=== PATIENT | female | born 1970 | race Caucasian/White ===

== ENCOUNTER → 2016-10-06 | Outpatient (CLI) | payer BC | LOC: BHSO 10:44 | DX: F43.10 Post-traumatic stress disorder, unspecified (principal) | CPT/HCPCS: 90791-AI ==

== ENCOUNTER → 2016-11-15 | Outpatient (CLI) | payer BC | LOC: BHSO 09:37 | DX: F43.10 Post-traumatic stress disorder, unspecified (principal) ==

== ENCOUNTER → 2016-12-21 | Outpatient (CLI) | payer BC | LOC: BHSO 09:15 | DX: F43.10 Post-traumatic stress disorder, unspecified (principal) ==

== ENCOUNTER → 2017-03-02 | Outpatient (CLI) | payer BC | LOC: BHSO 09:36 | DX: F43.10 Post-traumatic stress disorder, unspecified (principal) ==

== ENCOUNTER → 2017-03-22 | Outpatient (CLI) | payer BC | LOC: COL.RAD 03-21 07:30 | DX: M51.27 Other intervertebral disc displacement, lumbosacral region (principal); G54.8 Other nerve root and plexus disorders ==

== ENCOUNTER → 2017-05-31 | Outpatient (CLI) | payer BC | LOC: BHSO 08:58 | DX: F43.10 Post-traumatic stress disorder, unspecified (principal) | CPT/HCPCS: G0463 ==

== ENCOUNTER → 2017-06-19 | Outpatient (CLI) | payer BC | LOC: MC.RAD 10:40 | DX: Z12.31 Encounter for screening mammogram for malignant neoplasm of breast (principal) ==

== ENCOUNTER → 2017-07-05 | Outpatient (CLI) | payer BC | LOC: MHCPAIN 09:26 | DX: G89.29 Other chronic pain (principal); M47.817 Spondylosis without myelopathy or radiculopathy, lumbosacral region; M54.16 Radiculopathy, lumbar region | CPT/HCPCS: G0463 ==

== ENCOUNTER → 2017-09-28 | Outpatient (CLI) | payer BC | LOC: BHSO 08:00 | DX: F43.10 Post-traumatic stress disorder, unspecified (principal) | CPT/HCPCS: G0463 ==

== ENCOUNTER → 2017-10-25 | Outpatient (CLI) | payer BC | LOC: MHCPAIN 09:27 | DX: G89.29 Other chronic pain (principal); M47.817 Spondylosis without myelopathy or radiculopathy, lumbosacral region; M54.16 Radiculopathy, lumbar region; M53.3 Sacrococcygeal disorders, not elsewhere classified | CPT/HCPCS: G0463 ==

== ENCOUNTER → 2017-11-10 | Outpatient (CLI) | payer BC | LOC: COL.CARD 11-06 08:30 | DX: R00.0 Tachycardia, unspecified (principal) ==

== ENCOUNTER → 2018-01-29 | Outpatient (CLI) | payer BC | LOC: BHSO 08:15 | DX: F43.10 Post-traumatic stress disorder, unspecified (principal) | CPT/HCPCS: G0463 ==

== ENCOUNTER → 2018-04-26 | Outpatient (CLI) | payer BC | LOC: BHSO 09:46 | DX: F43.10 Post-traumatic stress disorder, unspecified (principal) | CPT/HCPCS: G0463 ==

== ENCOUNTER → 2018-06-28 | Outpatient (CLI) | payer BC | LOC: BHSO 09:54 | DX: F43.10 Post-traumatic stress disorder, unspecified (principal) | CPT/HCPCS: G0463 ==

== ENCOUNTER → 2019-01-10 | Outpatient (CLI) | payer BC | LOC: MC.RAD 08:00 | DX: Z12.31 Encounter for screening mammogram for malignant neoplasm of breast (principal) ==

== ENCOUNTER 2019-08-28 09:51 | Outpatient (RCR) | payer BC | END 2019-11-26 | disposition home or self-care (01) | LOC: MKS.ESL.PT | DX: M54.5 Low back pain (principal); M89.29 Other disorders of bone development and growth, multiple sites ==

== ENCOUNTER → 2020-02-07 | Outpatient (CLI) | payer BC | LOC: MC.RAD 07:30 | DX: Z12.31 Encounter for screening mammogram for malignant neoplasm of breast (principal); Z98.82 Breast implant status ==

== ENCOUNTER 2020-05-16 10:04 | Emergency (ER) | payer BC ==
[~2020-05-16] VITALS: Ht 167.6 cm; Wt 122.7 kg
[2020-05-16 10:12] VITALS: TEMP 97
[2020-05-16 11:56] LABS: ALBUMIN 3.8 gm/dL (3.5-5.0); BILIRUBIN,TOTAL 0.5 mg/dL (0.0-1.0); CALCIUM 8.7 mg/dL (8.4-10.2); CREATININE, serum 1.06 (0.52-1.25); TOTAL PROTEIN 7.3 gm/dL (6.4-8.2)
[2020-05-16 11:58] LABS: BASO % 0.3 % (0.0-2.0); EOS # 0.1 (0.0-0.7); GRAN # 8.5 (1.4-6.5); GRAN % 73.5 % (42.2-75.2); HEMATOCRIT 43.7 % (37.0-47.0); HEMOGLOBIN 12.2 g/dl (12.5-16.0); LYMPH # 2.2 (1.2-3.4); LYMPH % 18.7 % (20.0-51.0); MEAN CELL VOLUME 91 fl (80.0-100.0); MEAN CORPUSCULAR HEMOGLOBIN 25 pg (27.0-31.0); MEAN CORPUSCULAR HGB CONC 28 g/dl (33.0-37.0); MONO # 0.7 (0.1-0.6); MONO % 5.8 % (1.7-9.3); PLATELET COUNT 328 K/mm3 (130-400); POTASSIUM 5.8 mmol/L (3.4-5.0); RED BLOOD COUNT 4.83 M/mm3 (4.10-5.30); REDCELL DISTRIBUTION WIDTH-CV 16.4 % (11.5-14.5)
[2020-05-16] MEDS ORDERED: DECADRON 4MG TAB4 MG PO (12:28)
[2020-05-16] MEDS ORDERED: ALBUTEROL0.83 MG/ML IH (12:36)
[2020-05-16] MEDS ORDERED: PROVENTIL0.09 MG/A1 IH (12:37)
[2020-05-16] MEDS ORDERED: GLUCOPHAGE1000 MG PO (12:37)
[2020-05-16] MEDS ORDERED: LEVAQUIN 5500 MG/TA1 PO (12:38)
[2020-05-16] MEDS ORDERED: PRINIVIL10 MG PO (12:39)
[2020-05-16] MEDS ORDERED: VALIUM 5MG T5 MG/TAB PO (12:39)
[2020-05-16] MEDS ORDERED: ALDACTONE 25MG25 M1 PO (12:40)
[2020-05-16] MEDS ORDERED: RISPERDAL2 MG PO (12:41)
[2020-05-16] MEDS ORDERED: TOPROL XL200 MG PO (12:41)
[2020-05-16] MEDS ORDERED: SYNTHROID0.1 MG/TAB PO (12:42)
[2020-05-16] MEDS ORDERED: NORCO 325 MG-51 TAB PO (12:43)
[2020-05-16 13:41] LABS: COLLECTION METHOD CLEAN CATCH
[2020-05-16 14:09] LABS: MUCOUS Present /lpf; PH 6 (5-8); URINE APPEARANCE Hazy; URINE BACTERIA Many /hpf; URINE BILIRUBIN Negative (NEGATIVE); URINE BLOOD Negative (NEGATIVE); URINE COLOR Yellow; URINE GLUCOSE Negative (NEGATIVE); URINE KETONE Negative (NEGATIVE); URINE LEUKOCYTE ESTERASE Negative (NEGATIVE); URINE NITRATE Negative (NEGATIVE); URINE PROTEIN(semi-quant) Negative (NEGATIVE); URINE RBC 0-2 /hpf; URINE UROBILINOGEN Negative (NEGATIVE)
[2020-05-16 14:24] VITALS: BP 106/69; PULSE 86
== END 2020-05-16 13:31 | disposition home or self-care (01) ==
LOC: COL.ER 10:04
PROVIDERS: Family Medicine
DX: U07.1 COVID-19 (principal); E11.9 Type 2 diabetes mellitus without complications; F31.9 Bipolar disorder, unspecified; Z88.0 Allergy status to penicillin; Z88.1 Allergy status to other antibiotic agents; Z79.84 Long term (current) use of oral hypoglycemic drugs
CPT/HCPCS: J1100; J7120

== ENCOUNTER → 2020-05-19 | Outpatient (CLI) | payer BC ==
[~2020-05-19] MED LIST: ALBUTEROL0.83 MG/ML IH; ALDACTONE 25MG25 M1 PO; DECADRON 4MG TAB4 MG PO; GLUCOPHAGE1000 MG PO; LEVAQUIN 5500 MG/TA1 PO; NORCO 325 MG-51 TAB PO; PRINIVIL10 MG PO; PROVENTIL0.09 MG/A1 IH; RISPERDAL2 MG PO; SYNTHROID0.1 MG/TAB PO; TOPROL XL200 MG PO; VALIUM 5MG T5 MG/TAB PO
[2020-05-19 11:11] LABS: ALBUMIN 3.4 gm/dL (3.5-5.0); BILIRUBIN,TOTAL 0.3 mg/dL (0.0-1.0); CALCIUM 8.6 mg/dL (8.4-10.2); CREATININE, serum 1.1 (0.52-1.25); POTASSIUM 5.4 mmol/L (3.4-5.0); TOTAL PROTEIN 6.4 gm/dL (6.4-8.2)
== END ==
LOC: COL.LAB 10:40
PROVIDERS: Family Medicine
DX: E87.8 Other disorders of electrolyte and fluid balance, not elsewhere classified (principal)

== ENCOUNTER → 2020-06-10 | Outpatient (CLI) | payer BC | LOC: COL.RAD | DX: J98.6 Disorders of diaphragm (principal) ==

== ENCOUNTER → 2020-06-25 | Outpatient (CLI) | payer BC | LOC: COL.VAS 13:52 | DX: R06.02 Shortness of breath (principal) ==

== ENCOUNTER 2020-09-06 19:06 | Emergency (ER) | payer BC ==
[~2020-09-06] VITALS: Ht 170.2 cm; Wt 122.7 kg
[2020-09-06 19:12] VITALS: BP 122/87; TEMP 98.9
[2020-09-06 19:35] LABS: BASO % 0.5 % (0.0-2.0); EOS # 0.5 (0.0-0.7); EOS % 7.4 % (0-4.0); GRAN # 3.5 (1.4-6.5); HEMOGLOBIN 11.4 g/dl (12.5-16.0); LYMPH # 1.8 (1.2-3.4); LYMPH % 27.3 % (20.0-51.0); MEAN CELL VOLUME 96 fl (80.0-100.0); MEAN CORPUSCULAR HEMOGLOBIN 27 pg (27.0-31.0); MEAN CORPUSCULAR HGB CONC 29 g/dl (33.0-37.0); MONO # 0.7 (0.1-0.6); MONO % 10.9 % (1.7-9.3); PLATELET COUNT 273 K/mm3 (130-400); RED BLOOD COUNT 4.16 M/mm3 (4.10-5.30); REDCELL DISTRIBUTION WIDTH-CV 14.3 % (11.5-14.5)
[2020-09-06 19:52] LABS: ALBUMIN 3.8 gm/dL (3.5-5.0); BILIRUBIN,TOTAL 0.1 mg/dL (0.0-1.0); CALCIUM 9.1 mg/dL (8.4-10.2); CREATININE, serum 0.93 (0.52-1.25); POTASSIUM 4.4 mmol/L (3.4-5.0); TOTAL PROTEIN 7.7 gm/dL (6.4-8.2)
[2020-09-06 20:28] LABS: COLLECTION METHOD CLEAN CATCH
[2020-09-06 20:33] LABS: INR 1.1 (0.8-3.0); PROTHROMBIN TIME 11.7 SECONDS (9.7-12.8)
[2020-09-06 20:36] LABS: MUCOUS Present /lpf; PH 7 (5-8); URINE APPEARANCE Hazy; URINE BACTERIA Rare /hpf; URINE BILIRUBIN Negative (NEGATIVE); URINE BLOOD Negative (NEGATIVE); URINE COLOR Yellow; URINE GLUCOSE Negative (NEGATIVE); URINE KETONE Negative (NEGATIVE); URINE LEUKOCYTE ESTERASE Negative (NEGATIVE); URINE NITRATE Negative (NEGATIVE); URINE PROTEIN(semi-quant) Negative (NEGATIVE); URINE RBC 0-2 /hpf; URINE UROBILINOGEN Negative (NEGATIVE)
[2020-09-06 21:11] LABS: TROPONIN-I < 0.012 ng/mL (0.000-0.035)
[2020-09-06 23:38] VITALS: PULSE 83
== END 2020-09-06 23:38 | disposition home or self-care (01) ==
LOC: COL.ER 19:06
PROVIDERS: Emergency Medicine
DX: J96.21 Acute and chronic respiratory failure with hypoxia (principal); I10 Essential (primary) hypertension; E03.9 Hypothyroidism, unspecified; E11.9 Type 2 diabetes mellitus without complications; E66.2 Morbid (severe) obesity with alveolar hypoventilation; Z79.890 Hormone replacement therapy; Z79.899 Other long term (current) drug therapy; Z79.84 Long term (current) use of oral hypoglycemic drugs; Z86.16 Personal history of COVID-19
CPT/HCPCS: J2930; J7030

== ENCOUNTER → 2021-07-21 | Outpatient (CLI) | payer BC | LOC: MC.RAD 05-26 10:45 | DX: Z12.31 Encounter for screening mammogram for malignant neoplasm of breast (principal) ==

== ENCOUNTER 2021-12-31 10:42 | Emergency (ER) | payer BC ==
[~2021-12-31] VITALS: Ht 170.2 cm; Wt 136.4 kg
[2021-12-31 10:44] VITALS: TEMP 98.5
[2021-12-31 12:26] LABS: BASO % 0.2 % (0.0-2.0); EOS # 0.1 K/mm3 (0.0-0.7); EOS % 1.4 % (0.0-4.0); GRAN # 6.4 K/mm3 (1.4-6.5); GRAN % 76.5 % (42.2-75.2); LYMPH # 1.3 K/mm3 (1.2-3.4); LYMPH % 15.5 % (20.0-51.0); MEAN CELL VOLUME 93 fl (80.0-100.0); MEAN CORPUSCULAR HEMOGLOBIN 25 pg (27-31); MEAN CORPUSCULAR HGB CONC 27 g/dl (33.0-37.0); MEAN PLATELET VOLUME 9.8 fl (7.4-10.4); MONO # 0.5 K/mm3 (0.1-0.6); MONO % 5.7 % (1.7-9.3); PLATELET COUNT 222 K/mm3 (130-400); RED BLOOD COUNT 3.94 M/mm3 (4.10-5.30); REDCELL DISTRIBUTION WIDTH-CV 15.1 % (11.5-14.5)
[2021-12-31 12:27] LABS: HEMATOCRIT 36.7 % (37.0-47.0)
[2021-12-31 12:44] LABS: ALANINE AMINOTRANSFERASE 13 U/L (0-55); ALKALINE PHOSPHATASE 58 U/L (40-150); ANION GAP 9 mmol/L (7-16); AST,SGOT 40 U/L (5-34); BILIRUBIN,TOTAL 0.5 mg/dL (0.2-1.2); BLOOD UREA NITROGEN 12 mg/dL (10-20); CALCIUM 9.3 mg/dL (8.4-10.2); CARBON DIOXIDE 40 mmol/L (22-29); CHLORIDE 96 mmol/L (98-107); CREATINE KINASE 907 U/L (29-168); CREATININE, serum 0.76 mg/dL (0.57-1.11); GLUCOSE 80 mg/dL (70-99); POTASSIUM 3.7 mmol/L (3.5-4.5); SODIUM 145 mmol/L (136-145); TOTAL PROTEIN 6.5 gm/dL (6.2-8.1)
[2021-12-31 12:50] LABS: TROPONIN-I < 0.010 ng/mL (0.00-0.033)
[2021-12-31 15:17] LABS: COLLECTION METHOD CATHETER
[2021-12-31 15:32] LABS: PH 7.5 (5.0-8.5); URINE APPEARANCE Hazy (CLEAR/HAZY); URINE BLOOD TRACE-INTACT (NEGATIVE); URINE COLOR Yellow (YELLOW); URINE GLUCOSE Negative (NEGATIVE); URINE KETONE Negative (NEGATIVE); URINE NITRATE Negative (NEGATIVE); URINE PROTEIN(semi-quant) Negative (NEGATIVE); URINE UROBILINOGEN 0.2 E.U/dL (0.2-1.0)
[2021-12-31 15:53] LABS: SQUAMOUS EPITHELIAL 20-50 /hpf (0-10)
[2021-12-31 19:45] VITALS: BP 134/62; PULSE 111
== END 2021-12-31 19:45 | disposition short-term general hospital (02) ==
LOC: COL.ER 10:42
PROVIDERS: Emergency Medicine
DX: R55 Syncope and collapse (principal); M54.50 Low back pain, unspecified; R53.1 Weakness; R53.81 Other malaise; Z87.39 Personal history of other diseases of the musculoskeletal system and connective tissue; Z99.81 Dependence on supplemental oxygen; W18.30XA Fall on same level, unspecified, initial encounter
CPT/HCPCS: J2060; J2270; J2405; J3010; J7120